=== PATIENT | male | born 1940 | race Caucasian/White ===

== ENCOUNTER 2017-01-17 21:52 | Emergency (ER) | payer MEDICARE, BC ==
[2017-01-17] MEDS ORDERED: HYDROcodone/Acetaminophen 10/325 mg Tablet ONE (22:26)
[2017-01-17] MEDS ORDERED: Penicillin V Potassium 250 MG TAB ONE (22:27)
== END 2017-01-17 22:50 | disposition home or self-care (01) ==
LOC: MADERS 21:52
DX: K04.01 Reversible pulpitis (principal)
CPT/HCPCS: 99282

== ENCOUNTER 2017-10-11 12:22 | Emergency (ER) | payer MEDICARE, BC ==
[~2017-10-11 12:22] MED LIST: Sodium Chloride Irrig Solution 250 ML BOT ONE
[2017-10-11] MEDS ORDERED: Cephalexin 500 MG CAP ONE (13:08)
[2017-10-11] MEDS ORDERED: Adacel (T-DAP) 0.5 ML VIAL ONE (13:09)
== END 2017-10-11 13:27 | disposition home or self-care (01) ==
LOC: MADERS 12:22
DX: S61.012A Laceration without foreign body of left thumb without damage to nail, initial encounter (principal); I10 Essential (primary) hypertension; W26.0XXA Contact with knife, initial encounter
CPT/HCPCS: 90471; 90715; 99283

== ENCOUNTER 2021-12-06 05:18 | Emergency (ER) | payer MEDICARE, BC ==
[2021-12-06] MEDS ORDERED: Lidocaine 2% PF 100 mg/5 ml Syringe ONE (06:00)
[2021-12-06] MEDS ORDERED: Adenosine 6 MG/2 ML VIAL ONE (06:11)
[2021-12-06 06:18] LABS: Hemoglobin 7.4 g/dL (14.0-18.0); Mean Corpuscular HGB CONC 30.7 g/dL (32.0-36.0); Mean Corpuscular Hemoglobin 29.7 pg (27.0-31.0); Mean Corpuscular Volume 96.7 fL (78.0-98.0); Mean Platelet Volume 9.1 fL (7.4-10.4); Platelet Count 104 thou/uL (130-400); RBC Distribution Width 26.2 % (11.5-14.5); Red Blood Cell (RBC) Count 2.42 mill/uL (4.70-6.10); White Blood Cell (WBC) Count 5.6 thou/uL (4.8-10.8)
[2021-12-06 06:23] LABS: ALT (SGPT) 33 U/L (8-55); AST (SGOT) 23 U/L (5-34); Albumin 3.6 g/dL (3.4-4.8); Alkaline Phosphatase 72 U/L (40-110); Anion Gap 20 mmol/L (10-20); BUN (Urea Nitrogen) 37 mg/dL (8.4-25.7); Bilirubin, Total 0.6 mg/dL (0.2-1.2); CK (CPK) 58 U/L (30-200); Calc. Creatinine Clearance 0 mL/min (70-130); Calcium 9.2 mg/dL (7.8-10.44); Carbon Dioxide 16 mmol/L (23-31); Chloride 109 mmol/L (98-107); Estimated GFR 60; Globulin 2.7 g/dL (2.4-3.5); Glucose 214 mg/dL (83-110); Lipase 14 U/L (8-78); Potassium 4.7 mmol/L (3.5-5.1); Protein, Total 6.3 g/dL (5.8-8.1); Sodium 140 mmol/L (136-145)
[2021-12-06] MEDS ORDERED: Furosemide 40 MG/4 ML VIAL ONE (06:26)
[2021-12-06 06:28] LABS: Band 18 % (5-11); Lymphocytes 19 % (21-51); MDiff Complete? YES; Manual Diff?? YES; Neutrophil 58 % (42-75)
[2021-12-06 06:29] LABS: Anisocytosis SLIGHT = 6-15 cells (100X) (0-5/hpf); Monocytes 5 % (0-10); Poikilocytosis MODERATE=16-30 cells (100X) (0-5/hpf)
[2021-12-06 06:30] LABS: Platelet Morphology Comment Appears Decreased
[2021-12-06] MEDS ORDERED: Enoxaparin Sodium 80 MG/0.8 ML SYRINGE ONE (06:35)
[2021-12-06] MEDS ORDERED: Nitroglycerin 50 MG/250 ML BOT 250 ML ONE ×2 (06:36→07:16)
[2021-12-06 06:54] LABS: CKMB 5.2 ng/mL (0-6.6)
[2021-12-06 07:00] LABS: Base Excess-Venous -10.6 mmol/L (-2.0 to 3.0); Bicarbonate (HCO3v) 16.6 mmol/L (22.0-28.0); CO2 Tension (PvCO2) 41.9 mmHg (42.0-51.0); Calcium, Ionized 1.24 mmol/L (1.15-1.33); Chloride 107 mmol/L (98-107); Hemoglobin - Calc 7.4 g/dL (14.0-18.0); Potassium 4.6 mmol/L (3.5-5.1); Sodium 136 mmol/L (138-145); T. Carbon Dioxide 17.9 mmol/L (22.0-28.0); vO2 Saturation-calc 77.3 % (60.0-85.0)
[2021-12-06 07:17] LABS: INR-International Normal Ratio 1.1; PTT 28.1 sec (22.9-36.1); Prothrombin Time 14.5 sec (12.0-14.7)
[2021-12-06] MEDS ORDERED: Iopamidol 370 76% 125 ML VIAL FS ONE (08:56)
== END 2021-12-06 06:47 | disposition short-term general hospital (02) ==
LOC: MADERS 05:18
DX: I21.4 Non-ST elevation (NSTEMI) myocardial infarction (principal); J44.1 Chronic obstructive pulmonary disease with (acute) exacerbation; I11.0 Hypertensive heart disease with heart failure; I50.9 Heart failure, unspecified; D64.9 Anemia, unspecified; E87.2 Acidosis; D69.6 Thrombocytopenia, unspecified; I47.2 Ventricular tachycardia; R09.02 Hypoxemia; I44.7 Left bundle-branch block, unspecified; I25.10 Atherosclerotic heart disease of native coronary artery without angina pectoris; Z95.5 Presence of coronary angioplasty implant and graft; Z79.82 Long term (current) use of aspirin; Z85.118 Personal history of other malignant neoplasm of bronchus and lung
CPT/HCPCS: 71045; 71275; 80053; 82330; 82550; 82553; 82803; 83690; 84484; 85025; 85379; 85610; 85730; 92960; 93005; 96361; 96372; 96374; 96375; 99292; J0153; J1650; J1940; J2001; J7612; Q9967